=== PATIENT | male | born 2005 | race Two or more races ===

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

== ENCOUNTER 2024-03-17 22:21 | Emergency (ER) | payer OTHER ==
[2024-03-17 22:34] VITALS: BP 131/74; PULSE 93; RESP 18; TEMP 99.1; BMI 24.3
== END 2024-03-17 23:56 | disposition home or self-care (01) ==
LOC: JER 22:21
DX: Z04.1 Encounter for examination and observation following transport accident (principal); V09.20XA Pedestrian injured in traffic accident involving unspecified motor vehicles, initial encounter; Y92.410 Unspecified street and highway as the place of occurrence of the external cause; Y93.01 Activity, walking, marching and hiking
CPT/HCPCS: 99282-25

== ENCOUNTER 2024-07-05 20:53 | Emergency (ER) | payer OTHER ==
[2024-07-05 21:03] VITALS: BP 118/73; PULSE 102; RESP 18; TEMP 99; BMI 25.8
== END 2024-07-05 22:26 | disposition home or self-care (01) ==
LOC: JER 20:53
DX: L76.22 Postprocedural hemorrhage of skin and subcutaneous tissue following other procedure (principal)
CPT/HCPCS: 99283-25